=== PATIENT | female | born 1970 | race African-American/Black ===

== ENCOUNTER 2018-06-27 21:35 | Inpatient (IN) | payer OTHER ==
[~2018-06-27] VITALS: Ht 154.9 cm; Wt 91.1 kg
--- NOTE | ~2018-06-27 | HC ---
[facility] [place] [address] CONSULTATION Name: CONNIE PINON Room #: 354-P ADM IN M.R.#: [id number] Admission: 06/28/18 ������������������ Attend Phys: Kirk Garcia MD Discharge: ������������������ Date of : 70 Report #: [id number] THIS REPORT FOR: //name// CC: SKIP Garcia REASON FOR CONSULTATION: Chest pain. HISTORY OF PRESENT ILLNESS: The patient is a 47-year-old woman with a history of mild hypertension. I have been asked to see her for left upper chest and shoulder pain with radiation to the arm. She went to her physician's office yesterday to have a TB test for part of her employment. In the midst of having the TB test, she was found to be tachycardic, although she reports being off of her beta quyen for the past 48 hours. She was told that she may be having a heart attack and she was referred by paramedics to [facility], where she sat in the waiting room for at least 4-5 hours and was ever seen. She left the Emergency Department and came to [facility], where she had a CT scan, which was negative and was admitted for further evaluation. Serial cardiac enzymes have been normal. She reports that if she raises her arm above her head, she hears a popping feeling in her left shoulder and the pain seems to be worse. There is also a spot in the shoulder that is tender and will reproduce her symptoms. She does tell me that if she did not need a TB test, then none of this would have happened. When the upper chest and shoulder pain occurs, it only lasts for a second or two before being resolved. She denies sustained symptoms or longer lasting symptoms. ALLERGIES: ALLERGIC TO BANANAS AND PENICILLIN. MEDICATIONS: Include metoprolol 25 mg twice daily and ibuprofen. PAST MEDICAL HISTORY: Medical records have been reviewed. She has a history of prior pleurisy. SOCIAL HISTORY: Nonsmoker, nondrinker. 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 FAMILY HISTORY: Notable for mother with hypertension. REVIEW OF SYSTEMS: All systems negative except as that noted above. PHYSICAL EXAMINATION: GENERAL: A pleasant woman in no distress. VITAL SIGNS: Blood pressure is 148/90, heart rate of 100 and regular, temperature is 99.6 degrees. HEENT: There are neither xanthelasma, subcutaneous xanthomata, oral mucosal or digital cyanosis or kyphoscoliosis present. [address] [address] CONSULTATION Name: CONNIE PINON Room #: 354-P [facility] IN M.R.#: [id number] Admission: 06/28/18 ������������������ Attend Phys: Kirk Garcia MD Discharge: ������������������ Date of : 70 Report #: [id number] CHEST: Clear to auscultation and percussion. CARDIOVASCULAR: Regular rate and rhythm with normal S1, S2. No murmurs or rubs. ABDOMEN: Soft and nontender. EXTREMITIES: Without cyanosis, clubbing or edema. Radial pulses are 2+. NEUROLOGIC: She is alert with a nonfocal exam. LABORATORY DATA: White count 9.9, hemoglobin 13, hematocrit 38, platelet count 250. CT scans demonstrates no evidence of pulmonary embolism. No pericardial effusion. There is a stable, benign well-circumscribed low density focus within the posterior medial left suprahilar region. EKG is normal. IMPRESSION: 1. Left upper chest and shoulder pain consistent with musculoskeletal discomfort. 2. Sinus tachycardia, likely rebound from being off of metoprolol for the past couple of days. 3. Hypertension. RECOMMENDATIONS: 1. Resume metoprolol. 2. Consider nonsteroidal anti-inflammatories for her shoulder pain. No further cardiovascular testing is needed at this point. Thank you for asking me to participate in her care. ��������������������������������������������� ���������������������������������������� By: ��������������������������������������������� 0834 0905 Solomon Callejas MD, FACC /nt
[~2018-06-27 21:35] MED LIST: ALBUTEROL INH; FLEXERIL PO; IBUPROFEN 600600 M1 PO; LOPRESSOR25 PO; MEDROLDOSEPACK PO; NAPROSYN500 MG PO; NOHOMEMEDICATIONS; NORCO 5-325 TA1 EACH PO; PREDNISONE 20 M20 M1 PO; ULTRAM 50MG TAB50 MG PO; ZOFRAN4 MG PO
[2018-06-27] MEDS ORDERED: VITAMIN D2000 UNIT PO (21:48)
[2018-06-27 22:33] LABS: ABSOLUTE NEUTROPHILS 6.4 thou/uL (1.4-8.2); BASOPHILS 1.2 % (0.0-2.0); EOSINOPHILS 1.3 % (0.0-3.0); HEMATOCRIT 38.7 % (37.0-47.0); HEMOGLOBIN 13.5 gm/dL (12.0-15.0); LYMPHOCYTES 27.6 % (24.0-44.0); MCH 27.8 pg (26.0-34.0); MCHC 34.8 g/dL (28.0-37.0); MCV 80.1 fL (80.0-100.0); MONOCYTES 5.1 % (1.0-8.0); PLATELET COUNT 250 thou/uL (150-400); POLYS 64.8 % (36.0-66.0); RBC 4.83 mil/uL (4.20-5.00); RDW 14.7 % (10.5-14.5); WBC 9.9 thou/uL (4.0-11.0)
[2018-06-27 22:36] LABS: ANION GAP 10 mmol/L (7-16); BUN 11 mg/dL (7-18); CALCIUM 9.4 mg/dL (8.5-10.1); CHLORIDE 102 mmol/L (98-107); CO2 26 mmol/L (21-32); CREATININE 0.7 mg/dL (0.6-1.0); GLUCOSE 100 mg/dL (74-106); POTASSIUM 3.9 mmol/L (3.5-5.1); SODIUM 138 mmol/L (136-145)
[2018-06-27 22:45] LABS: TROPONIN-I <0.06 ng/mL (<0.06)
[2018-06-28] MEDS ORDERED: LOPRESSOR25 PO (04:49)
[2018-06-28] MEDS ORDERED: ERGOCALCIF50000 UNIT PO (04:49)
[2018-06-28 05:01] VITALS: BP 149/80
[2018-06-28 05:12] LABS: AMP/METHAMP Negative (Negative); BARBITURATES Negative (Negative); BENZODIAZEPINES Negative (Negative); COCAINE Negative (Negative); METHADONE Negative (Negative); OPIATES Negative (Negative); PCP Negative (Negative)
--- NOTE | 2018-06-28 06:27 | NUR ---
LATE SHIFT ADMIT FROM ER. PT IS UP AD TRISH. COMPLETED ALL ADMISSION INTERVENTIONS. PT ARRIVED ON THE UNIT WITH HEART RATE STILL TACHY. HR BETWEEN 105-135. CALLED WENDY PAULSON AND GOT AUTHORIZATION TO GIVE 0900 METETROP TO HELP BRING HR BACK IN LINE. WILL PASS THIS INFORMATION ON TO DAY NURSE.
[2018-06-28 07:00] VITALS: BP 148/90
[2018-06-28 07:53] LABS: CHOLESTEROL 150 mg/dL (<200); HDL CHOLESTEROL 37 mg/dL (>40); LDL CHOLESTEROL 101 mg/dL (<100); TC:HDL 4.1 Ratio (Not establshd); TRIGLYCERIDE 63 mg/dL (<150); VLDL 13 mg/dL (<40)
--- NOTE | 2018-06-28 09:09 | EKG ---
[place] [address] [address] [facility] [place] [address] ELECTROCARDIOGRAM REPORT Name: CONNIE PINON Room #: 354-P ADM IN M.R.#: [id number] ������������������ Admission: 06/28/18 ������������������ Attend Phys: Kirk Garcia MD Discharge: ������������������ Date of : 70 Report #: [id number] ����������������������������������������������������������������� [id number] THIS REPORT FOR: //name// [facility] ED Test Date: 2018-06-27 Test Time: 21:42:09 Pat Name: CONNIE PINON Department: Room: 354 Gender: F Cycle Liaison: ROMARIO : 1970 Requested By: Isadora [place] Order Number: [id number] MD: Solomon Callejas Measurements Intervals [place] Rate: 125 P: 50 MN: 147 QRS: 24 QRSD: 75 T: 26 QT: 312 QTc: 450 Interpretive Statements Sinus tachycardia Borderline T wave abnormalities Baseline wander in lead(s) V3,V6 Compared to ECG 06/25/2015 01:28:47 No significant change was found Electronically Signed On 06-28-2018 9:09:51 CDT by Solomon Callejas [email or web address] ��������������������������������������������� <ELECTRONICALLY SIGNED> ���������������������������������������� By: Solomon Callejas MD, [facility] ��������������������������������������������� 06/28/18 0909 41 41 Solomon Callejas MD, [facility] /EPI
--- NOTE | 2018-06-28 09:17 | 2DMMODE ---
[facility] [address] [place] [address] 2 D/M-MODE ECHOCARDIOGRAM Name: CONNIE PINON Room #: 354-P ADM IN M.R.#: [id number] ������������� Admission: 06/28/18 ������������� Attend Phys: Kirk Garcia MD Discharge: ��� ������������� ��� Date of : 70 Date of Service: 06/28/18 0917 �� Report #: [id number] �������� ��������������������������������������������[id number] THIS REPORT FOR: //name// APPROVED REPORT Study performed: 06/28/2018 08:36:12 EXAM: Comprehensive 2D, Doppler, and color-flow Echocardiogram Patient Location: Echo lab Room #: [facility] Status: routine BSA: 1.90 HR: 91 bpm BP: 148/90 mmHg Rhythm: NSR Other Information Study Quality: Adequate Indications Dyspnea Chest Pain Hypertension/HDD 2D Dimensions RVDd: 30.54 mm IVSd: 11.33 (7-11mm) LVOT Diam: 20.15 (18-24mm) LVDd: 37.49 mm PWd: 11.22 (7-11mm) Ascending Ao: 25.17 (22-36mm) LVDs: 25.84 (25-40mm) Aortic Root: 26.49 mm IVC: 10.00 mm Volumes Left Atrial Volume (Systole) Single Plane 4CH: 20.39 mL Single Plane 2CH: 23.23 mL LA ESV Index: 13.00 mL/m2 Aortic Valve AoV Peak Carlos Eduardo.: 1.05 m/s AO Peak Gr.: 4.45 mmHg LVOT Max P.64 mmHg LVOT Max V: 0.95 m/s RUPERT Vmax: 2.88 cm2 Mitral Valve E/A Ratio: 1.3 [facility] [place] [address] [place] [address] 2 D/M-MODE ECHOCARDIOGRAM Name: CONNIE PINON Room #: 354-P [facility] IN [facility]#: [id number] ������������� Admission: 06/28/18 ������������� Attend Phys: Kirk Garcia MD Discharge: ��� ������������� ��� Date of : 70 Date of Service: 06/28/18 0917 �� Report #: [id number] �������� ��������������������������������������������[id number] MV Decel. Time: 170.87 ms MV E Max Carlos Eduardo.: 0.96 m/s MV A Carlos Eduardo.: 0.72 m/s MV PHT: 49.55 ms IVRT: 83.04 ms Pulmonary Valve PV Peak Carlos Eduardo.: 0.68 m/s PV Peak Gr.: 1.84 mmHg Pulmonary Vein P Vein S: 0.34 m/s P Vein A: 0.24 m/s P Vein D: 0.27 m/s P Vein A Dur.: 106.1 msec P Vein S/D Ratio: 1.26 Tricuspid Valve TR Peak Carlos Eduardo.: 2.39 m/s TR Peak Gr.: 22.88 mmHg PA Pressure: 28.00 mmHg Left Ventricle The left ventricle is normal size. There is normal LV segmental wall motion. There is normal left ventricular wall thickness. Left ventricular systolic function is normal. The left ventricular ejection fraction is within the normal range. LVEF is 55-60%. The left ventricular diastolic function is normal. Right Ventricle The right ventricle is normal size. The right ventricular systolic function is normal. Atria The left atrium size is normal. The right atrium size is normal. Aortic Valve The aortic valve is normal in structure. No aortic regurgitation is present. There is no aortic valvular stenosis. Mitral Valve The mitral valve is normal in structure. There is no mitral valve regurgitation noted. No evidence of mitral valve stenosis. Tricuspid Valve The tricuspid valve is normal in structure. There is trace tricuspid regurgitation. Estimated PAP 25 mmHg. There is no pulmonary hypertension. [place] [id number] 2 D/M-MODE ECHOCARDIOGRAM Name: CONNIE PINON Room #: 354-P [facility] IN M.R.#: [id number] ������������� Admission: 06/28/18 ������������� Attend Phys: Kirk Garcia MD Discharge: ��� ������������� ��� Date of : 70 Date of Service: 06/28/18 0917 �� Report #: [id number] �������� ��������������������������������������������[id number] Pulmonic Valve The pulmonary valve is normal in structure. There is no pulmonic valvular regurgitation. Great Vessels The aortic root is normal in size. IVC is normal in size and collapses >50% with inspiration. Pericardium There is no pericardial effusion. <Conclusion> 1. Normal echocardiogram with Doppler EF 60% 2. Pulmonary artery pressure of 25mmHg 3. No pericardial effusion ��������������������������������������������� <ELECTRONICALLY SIGNED> ���������������������������������������� By: Solomon Callejas MD, FACC ��������������������������������������������� 06/28/18916 6 6 Solomon Callejas MD, FACC /INF
--- NOTE | 2018-06-28 10:34 | NUR ---
ASSESSMENT: CM REVIEWED CHART AND MET WITH PATIENT AT THE BEDSIDE. PT IS ALERT AND ORIENTED X4.CM RECEIVED A CONSULT FOR ADVANCED DIRECTIVE. CM DISCUSSED WITH PATIENT AND SHE STATES SHE DOES NOT HAVE ONE OR DID NOT ASK FOR ONE BUT CM DISCUSSED AND PROVIDED PACKET IF SHE WAS INTERESTED. PT REPORTS THAT SHE IS FULLY INDPENDENT WITH ADLS AND AMBULATION. PT REPORTS SHE HAS NOT HAD HH IN THE PAST AND DOES NOT ANTICIPATE HAVING ANY NEEDS FROM CM.
[2018-06-28 11:14] VITALS: BP 128/83
[2018-06-28] MEDS ORDERED: PEPCID20 MG PO (12:50)
[2018-06-28] MEDS ORDERED: ASPIR 8181 MG PO (12:50)
[2018-06-28] MEDS ORDERED: ACETAMINOPHEN325 M1 PO (12:50)
[2018-06-28 13:25] VITALS: BP 128/83
--- NOTE | 2018-06-28 14:46 | NUR ---
PT ALERT AND ORIENTED TIMES FOUR. VSS, 100%RA, PT DENIES PAIN/SOA. PT UP AB TRISH WITH STEADY GAIT. PT TOLERATES MEDS AND MEALS. FAMILY AT BEDSIDE. PT PROGRESSING TOWRADS POC GOALS.
[2018-06-29 01:09] LABS: GLYCOHEMOGLOBIN (HGB A1C) 5.9 % (4.8-5.6)
== END 2018-06-28 15:07 | disposition home or self-care (01) | DRG 313 ==
LOC: ER 21:35 → EROBS 06-28 04:24 → 3W 06-28 04:24 → ENTRNSPT 06-28 14:53 → EDTRNSPTSTS 06-28 14:56 → 3W 06-28 15:07
PROVIDERS: Nurse Practitioner Family; Student in an Organized Health Care Education/Training Program; ADMIT Internal Medicine
DX: R07.89 Other chest pain (principal); R91.8 Other nonspecific abnormal finding of lung field; K21.9 Gastro-esophageal reflux disease without esophagitis; E66.9 Obesity, unspecified; R00.0 Tachycardia, unspecified; I10 Essential (primary) hypertension; J45.909 Unspecified asthma, uncomplicated; Z88.0 Allergy status to penicillin; Z68.38 Body mass index [BMI] 38.0-38.9, adult; Z88.8 Allergy status to other drugs, medicaments and biological substances; Z82.49 Family history of ischemic heart disease and other diseases of the circulatory system
CPT/HCPCS: 10879

== ENCOUNTER 2020-09-28 01:12 | Emergency (ER) | payer OTHER ==
[~2020-09-28] VITALS: Ht 154.9 cm; Wt 91.2 kg
[~2020-09-28 01:12] MED LIST changes: +ACETAMINOPHEN325 M1 PO; +ASPIR 8181 MG PO; +ERGOCALCIF50000 UNIT PO; +PEPCID20 MG PO; +VITAMIN D2000 UNIT PO
[2020-09-28 02:37] LABS: ABSOLUTE NEUTROPHILS 4.1 thou/uL (1.4-8.2); BASOPHILS 0.9 % (0.0-2.0); EOSINOPHILS 2.4 % (0.0-3.0); HEMATOCRIT 40.1 % (37.0-47.0); HEMOGLOBIN 13.8 gm/dL (12.0-15.0); LYMPHOCYTES 42.1 % (24.0-44.0); MCH 28.4 pg (26.0-34.0); MCHC 34.5 g/dL (28.0-37.0); MCV 82.2 fL (80.0-100.0); MONOCYTES 5.6 % (1.0-8.0); PLATELET COUNT 269 thou/uL (150-400); RBC 4.87 mil/uL (4.20-5.00); RDW 14.6 % (10.5-14.5); WBC 8.5 thou/uL (4.0-11.0)
[2020-09-28 03:00] LABS: ANION GAP 10 mmol/L (7-16); BUN 15 mg/dL (7-18); CALCIUM 9.7 mg/dL (8.5-10.1); CHLORIDE 101 mmol/L (98-107); CO2 28 mmol/L (21-32); CREATININE 0.8 mg/dL (0.6-1.0); GLUCOSE 170 mg/dL (74-106); POTASSIUM 3.8 mmol/L (3.5-5.1); SODIUM 139 mmol/L (136-145)
[2020-09-28 03:08] LABS: TROPONIN-I <0.06 ng/mL (<0.06)
[2020-09-28] MEDS ORDERED: MOBIC15 MG PO (03:22)
[2020-09-28 04:01] VITALS: BP 151/80
--- NOTE | 2020-09-28 11:24 | EKG ---
[place] [address] 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 : 1970 Requested By: Brittany Powell Order Number: [id number] MD: Donaldo Jackson Measurements Intervals [place] Rate: 105 P: 51 AK: 166 QRS: 12 QRSD: 74 T: 49 QT: 346 QTc: 458 Interpretive Statements Sinus tachycardia Abnormal R-wave progression, early transition Left ventricular hypertrophy Compared to ECG 06/27/2018 21:42:09 Left ventricular hypertrophy now present T-wave abnormality no longer present Electronically Signed On 09-28-2020 11:24:29 CDT by Donaldo Jackson [email or web address] <ELECTRONICALLY SIGNED> By: Donaldo Jackson MD 09/28/20 1124 0124 0124 Donaldo Jackson MD /CARINA
== END 2020-09-28 04:02 | disposition home or self-care (01) ==
LOC: ER 01:12
PROVIDERS: Emergency Medicine
DX: M25.512 Pain in left shoulder (principal); R07.89 Other chest pain; R20.2 Paresthesia of skin; I10 Essential (primary) hypertension; J45.909 Unspecified asthma, uncomplicated; Z79.82 Long term (current) use of aspirin; Z79.899 Other long term (current) drug therapy; Z88.0 Allergy status to penicillin; Z91.018 Allergy to other foods

== ENCOUNTER 2021-06-02 04:34 | Emergency (ER) | payer OTHER ==
[~2021-06-02] VITALS: Ht 154.9 cm; Wt 99.8 kg
[~2021-06-02 04:34] MED LIST changes: +MOBIC15 MG PO
[2021-06-02 05:20] LABS: BASOPHILS 0.9 % (0.0-2.0); EOSINOPHILS 2.8 % (0.0-3.0); HEMATOCRIT 38.7 % (37.0-47.0); HEMOGLOBIN 13.6 gm/dL (12.0-15.0); LYMPHOCYTES 42.6 % (24.0-44.0); MCH 28.8 pg (26.0-34.0); MCHC 35.1 g/dL (28.0-37.0); MONOCYTES 7.3 % (1.0-8.0); PLATELET COUNT 277 thou/uL (150-400); POLYS 46.4 % (36.0-66.0); RBC 4.72 mil/uL (4.20-5.00); RDW 14.5 % (10.5-14.5); WBC 8.5 thou/uL (4.0-11.0)
[2021-06-02 05:35] LABS: CALCIUM 9.4 mg/dL (8.5-10.1); CREATININE 0.9 mg/dL (0.6-1.0); POTASSIUM 3.2 mmol/L (3.5-5.1)
--- NOTE | 2021-06-02 07:42 | EKG ---
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 : 1970 Requested By: Rl Blas Order Number: [id number] MD: Abdullahi Dhillon Measurements Intervals [place] Rate: 103 P: 54 MS: 157 QRS: 31 QRSD: 58 T: 93 QT: 395 QTc: 517 Interpretive Statements Sinus tachycardia Probable LVH with secondary repol abnrm Prolonged QT interval Baseline wander in lead(s) V1 Compared to ECG 09/28/2020 01:24:34 Prolonged QT interval now present Electronically Signed On 06-02-2021 7:42:04 BULLET SWAGING MACHINE OPERATOR by Abdullahi Dhillon [email or web address] <ELECTRONICALLY SIGNED> By: Abdullahi Dhillon MD, [facility] 06/02/21 0742 0457 6 Abdullahi Dhillon MD, FACC /EPI
[2021-06-02] MEDS ORDERED: MELOXICAM15 MG PO (08:17)
[2021-06-02 08:33] VITALS: BP 123/87
[2021-06-02] MEDS ORDERED: TESSALON PERLE100 MG PO (08:40)
== END 2021-06-02 08:45 | disposition home or self-care (01) ==
LOC: ER 04:34
PROVIDERS: Student in an Organized Health Care Education/Training Program
DX: K21.9 Gastro-esophageal reflux disease without esophagitis (principal); R05.9 Cough, unspecified; J45.909 Unspecified asthma, uncomplicated; I10 Essential (primary) hypertension; Z88.0 Allergy status to penicillin; Z91.018 Allergy to other foods